=== PATIENT | female | born 2000 | race Hispanic/Latino ===

== ENCOUNTER 2022-02-13 16:15 | Emergency (ER) | payer MEDICAID, OTHER, SELFPAY ==
[2022-02-13] MEDS ORDERED: Ketorolac Tromethamine 30 MG/ML VIAL ONE (18:28)
== END 2022-02-13 18:30 | disposition home or self-care (01) ==
LOC: ERS 16:15
DX: S30.1XXA Contusion of abdominal wall, initial encounter (principal); M54.6 Pain in thoracic spine; V49.50XA Passenger injured in collision with unspecified motor vehicles in traffic accident, initial encounter
CPT/HCPCS: 71045; 72072; 96372; J1885